=== PATIENT | female | born 1950 ===

== ENCOUNTER 2018-01-30 07:55 | Day surgery (SDC) | payer MEDICARE, MEDICAID ==
[2015-09-14 16:15] VITALS: BMI 31.8
[2018-01-30] MEDS ORDERED: Lactated Ringer's 500 ML IV ONE (09:04)
[2018-01-30] MEDS ORDERED: Midazolam 2 MG/2 ML VIAL ONE (10:02)
[2018-01-30] MEDS ORDERED: Propofol 10 mg/ml Inj (20 ML) ONE (10:03)
[2018-01-30] MEDS ORDERED: Lidocaine PF 2% (5 ml) Inj (For Cardiac Arrhy) IV ONE (10:03)
[2018-01-30 10:36] VITALS: TEMP 97; O2SAT 99
[2018-01-30 10:56] VITALS: BP 100/60; PULSE 80; RESP 14
== END 2018-01-30 11:05 | disposition home or self-care (01) ==
LOC: H.ENDO 07:55
PROVIDERS: ATTEND Internal Medicine Gastroenterology
DX: Z12.11 Encounter for screening for malignant neoplasm of colon (principal); K64.8 Other hemorrhoids; E11.9 Type 2 diabetes mellitus without complications; G47.33 Obstructive sleep apnea (adult) (pediatric); I10 Essential (primary) hypertension
CPT/HCPCS: 45378; J2250; J2704; J7120